=== PATIENT | male | born 1975 | race Caucasian/White ===

== ENCOUNTER 2016-12-04 09:12 | Observation (INO) | payer BC, OTHER ==
[~2016-12-04] VITALS: Ht 175.3 cm; Wt 73.0 kg
[2016-12-04 09:15] VITALS: BP 137/88; PULSE 57; RESP 16; TEMP 98.2; O2SAT 99
[2016-12-04] MEDS ORDERED: SODIUM CHLORIDE 0.9% FLUSH 10 ML FLUSH IVF PRN (09:30)
[2016-12-04] MEDS ORDERED: KETOROLAC TROMETHAMINE 30 MG/ML (IVP) VIAL IVP ONE (09:30)
[2016-12-04] MEDS ORDERED: ONDANSETRON HCL 4 MG/2 ML VIAL IVP ONE (09:30)
[2016-12-04] MEDS ORDERED: HYDROmorphone HCL PF 1 MG/ML VIAL IVS ONE (09:30)
--- NOTE | 2016-12-04 09:30 | PD ---
HPI . Right flank pain Chief Complaint: Flank/Kidney Pain Time Seen by Provider: 09:21 Travel History International Travel<30 days: No Contact w/Intl Traveler<30days: No Traveled to known affect area: No History of Present Illness HPI Patient presents with a chief complaint of right flank pain. Onset was 3-4 days ago. Symptoms have waxed and waned. Symptoms are getting progressively worse. He states that his pain can range anywhere from 5/109/10. He has not noted any exacerbating or relieving factors. He denies any previous similar history. He denies any urinary tract symptoms. He denies any nausea or vomiting. He denies anorexia or exacerbation of symptoms with eating. PFSH Past Medical History Cardiovascular Problems: Yes (HX HTN, DOES NOT TAKE THE MEDS X 2 YEARS) Hypertension: Yes (LONG AGO, DOES NOT TAKE THE MEDS) Past Surgical History Genitourinary Surgery: Yes (VASECTOMY) Social History Alcohol Use: Yes (RARE) Tobacco Use: No Substance Use: No Allergies-Medications (Allergen,Severity, Reaction): Coded Allergies: No Known Allergies (Unverified , 12/04/16) Reported Meds & Prescriptions Reported Meds & Active Scripts Active No Active Prescriptions or Reported Medications Review of Systems Except as stated in HPI: all other systems reviewed are Neg General / Constitutional: No: Fever, Chills Gastrointestinal: No: Nausea, Vomiting, Diarrhea, Loss of Appetite Genitourinary: Positive: Flank Pain, No: Urgency, Frequency, Dysuria, Hematuria Physical Exam Narrative GENERAL: Patient is awake and alert and in no acute distress. SKIN: Warm and dry. I do not see a rash in the area of pain. HEAD: Atraumatic. Normocephalic. EYES: Pupils equal and round. Extraocular movements are intact. ENT: No nasal bleeding or discharge. Mucous membranes pink and moist. NECK: Trachea midline. Neck is supple. CARDIOVASCULAR: Regular rate and rhythm. RESPIRATORY: No accessory muscle use. GASTROINTESTINAL: Abdomen soft, non-tender, nondistended. I am unable to elicit any right upper quadrant tenderness. He has very mild right CVA tenderness. MUSCULOSKELETAL: No obvious deformities. No edema. NEUROLOGICAL: Awake and alert. No obvious cranial nerve deficits. Motor grossly within normal limits. Normal speech. PSYCHIATRIC: Appropriate mood and affect; insight and judgment normal. Data Data Last Documented VS Vital Signs Date Time Temp Pulse Resp B/P Pulse Ox O2 Delivery O2 Flow Rate FiO2 12/04/16 13:34 98.3 63 16 141/91 100 Room Air Orders Urinalysis - C+S If Indicated (12/04/16 09:25) Ct Abd/Pel W/O Iv Contrast (12/04/16 09:25) Iv Access Insert/Monitor (12/04/16 09:25) Ketorolac Inj (Toradol Inj) (12/04/16 09:30) Ondansetron Inj (Zofran Inj) (12/04/16 09:30) Sodium Chloride 0.9% Flush (Ns Flush) (12/04/16 09:30) Hydromorphone Pf Inj (Dilaudid Pf Inj) (12/04/16 09:30) Complete Blood Count With Diff (12/04/16 10:15) Basic Metabolic Panel (Bmp) (12/04/16 10:15) Sodium Chlor 0.9% 1000 Ml Inj (Ns 1000 M (12/04/16 11:00) Labs Laboratory Tests Test 12/04/16 12/04/16 09:34 10:20 Urine Color YELLOW Urine Turbidity CLEAR Urine pH 6.5 Urine Specific [place] 1.021 Urine Protein NEG mg/dL Urine Glucose (UA) NEG mg/dL Urine Ketones NEG mg/dL Urine Occult Blood NEG Urine Nitrite NEG Urine Bilirubin NEG Urine Leukocyte Esterase NEG Urine WBC 0-2 /hpf Urine Bacteria RARE /hpf Microscopic Urinalysis Comment CULT NOT INDICATED White Blood Count 6.9 TH/MM3 Red Blood Count 5.36 MIL/MM3 Hemoglobin 15.4 GM/DL Hematocrit 47.1 % Mean Corpuscular Volume 87.9 FL Mean Corpuscular Hemoglobin 28.7 PG Mean Corpuscular Hemoglobin 32.7 % Concent Red Cell Distribution Width 13.0 % Platelet Count 301 TH/MM3 Mean Platelet Volume 8.9 FL Neutrophils (%) (Auto) 63.4 % Lymphocytes (%) (Auto) 27.5 % Monocytes (%) (Auto) 5.2 % Eosinophils (%) (Auto) 2.8 % Basophils (%) (Auto) 1.1 % Neutrophils # (Auto) 4.2 TH/MM3 Lymphocytes # (Auto) 1.9 TH/MM3 Monocytes # (Auto) 0.4 TH/MM3 Eosinophils # (Auto) 0.2 TH/MM3 Basophils # (Auto) 0.1 TH/MM3 CBC Comment DIFF FINAL Differential Comment Sodium Level 144 MEQ/L Potassium Level 4.1 MEQ/L Chloride Level 109 MEQ/L Carbon Dioxide Level 28.4 MEQ/L Anion Gap 7 MEQ/L Blood Urea Nitrogen 12 MG/DL Creatinine 0.96 MG/DL Estimat Glomerular Filtration 87 ML/MIN Rate Random Glucose 93 MG/DL Calcium Level 8.3 MG/DL MDM Medical Decision Making Medical Screen Exam Complete: Yes Emergency Medical Condition: Yes Differential Diagnosis Differential diagnosis of flank pain includes but is not limited to kidney stone , pyelonephritis, musculoskeletal pain, PE Narrative Course This patient presents with a 3 day history of right flank pain. Symptoms have waxed and waned and are getting progressively worse. He will be evaluated for possible kidney stone. Last Impressions Abdomen/Pelvis CT 12/04/1625 Signed Impressions: Service Date/Time: , December 04, 2016 09:33 - CONCLUSION: 1. Dense enlarged appendix without significant periappendiceal inflammatory change at this time. Findings may reflect very acute developing appendicitis versus resolving appendicitis. 2. Bilateral fat containing inguinal hernias. 1. Garrett Parkinson MD Given the results of the CT, labs were ordered. CBC & BMP Diagram 12/04/16 10:20 His UA is unremarkable I have subsequently discussed the case with Dr. Mchugh. He will come and see the patient in the emergency department. The patient is aware. The patient is also aware that it would be a while before Dr. Mchugh gets here. Dr. Mchugh has subsequently seen the patient and is planning to take the patient to the operating room for an appendectomy. Diagnosis Primary Impression: Flank pain Admitting Information Admitting Physician Requests: Observation Scripts No Active Prescriptions or Reported Meds Condition: Stable Eloisa Vargas MD Dec 04, 2016 09:30
[2016-12-04 10:01] LABS: BLOOD, URINE NEG (NEG); GLUCOSE,URINE NEG (NEG); KETONE, URINE NEG (NEG); NITRITE,URINE NEG (NEG); PH, URINE 6.5 (5.0-8.5)
--- NOTE | 2016-12-04 10:08 | RADRPT ---
EXAM DATE/TIME: 12/04/2016 09:33 [facility] COMPARISON: No previous studies available for comparison. INDICATIONS : Right flank pain. ORAL CONTRAST: No oral contrast ingested. RADIATION DOSE: 10.35 CTDIvol (mGy) MEDICAL HISTORY : Hypertension. SURGICAL HISTORY : Vasectomy. ENCOUNTER: Initial ACUITY: 4 - 6 days PAIN SCALE: 7/10 LOCATION: Right flank TECHNIQUE: Volumetric scanning of the abdomen and pelvis was performed. Using automated exposure control and ad justment of the mA and/or kV according to patient size, radiation dose was kept as low as reasonably achievable to obtain optimal diagnostic quality images. DICOM format image data is available electro nically for review and comparison. FINDINGS: LOWER LUNGS: The visualized lower lungs are clear. LIVER: Homogeneous density without lesion. There is no dilation of the biliary tree. No calcified gallston es. SPLEEN: Normal size without lesion. PANCREAS: Within normal limits. KIDNEYS: Normal in size and shape. There is no mass, stone, or hydronephrosis. ADRENAL GLANDS: Within normal limits. VASCULAR: There is no aortic aneurysm. BOWEL/MESENTERY: Appendix is visualized and appears dense and enlarged measuring up to 9 mm containing small foci of a ir. There is no significant periappendiceal inflammatory change although several small subcentimeter mesenteric nodes are noted. The stomach, small bowel, and colon demonstrate no acute abnormality. Th ere is no free intraperitoneal air or fluid. ABDOMINAL WALL: Within normal limits. RETROPERITONEUM: No retroperitoneal adenopathy. BLADDER: No wall thickening or mass. REPRODUCTIVE: Nonspecific mild prostatic enlargement with prostate calcifications. INGUINAL: Small fat containing bilateral inguinal hernias more prominently on the left. MUSCULOSKELETAL: Within normal limits for patient age. CONCLUSION: 1. Dense enlarged appendix without significant periappendiceal inflammatory change at this time. Find ings may reflect very acute developing appendicitis versus resolving appendicitis. 2. Bilateral fat containing inguinal hernias. 1. Garrett Parkinson MD on December 04, 2016 at 9:59 Board Certified Radiologist. This report was verified electronically.
[2016-12-04 10:11] LABS: BACTERIA, URINE RARE /hpf; COMMENT (UR) CULT NOT INDICATED; CULTURE IF INDICATED CULT NOT INDICATED; URINE COLOR YELLOW (YELLW/STRAW); WBC, URINE 0-2 /hpf (0-5)
[2016-12-04 10:33] LABS: AUTOMATED NEUTROPHIL # 4.2 TH/MM3 (1.8-7.7); BASOPHIL # 0.1 TH/MM3 (0-0.2); BASOPHIL % 1.1 % (0.0-2.0); EOSINOPHIL # 0.2 TH/MM3 (0-0.4); EOSINOPHIL % 2.8 % (0.0-4.0); HEMATOCRIT 47.1 % (39.0-51.0); HEMO FLAGS DIFF FINAL; LYMPH % 27.5 % (9.0-44.0); LYMPHOCYTE # 1.9 TH/MM3 (1.0-4.8); MEAN CELL VOLUME 87.9 FL (80.0-100.0); MEAN CORPUSCULAR HEMOGLOBIN 28.7 PG (27.0-34.0); MEAN CORPUSCULAR HGB CONC 32.7 % (32.0-36.0); MONO % 5.2 % (0.0-8.0); NEUT % 63.4 % (16.0-70.0); PLATELET COUNT 301 TH/MM3 (150-450); RED BLOOD COUNT 5.36 MIL/MM3 (4.50-5.90); WHITE BLOOD COUNT 6.9 TH/MM3 (4.0-11.0)
[2016-12-04 10:40] LABS: POTASSIUM 4.1 MEQ/L (3.5-5.1)
[2016-12-04 10:44] LABS: BICARBONATE 28.4 MEQ/L (21.0-32.0)
[2016-12-04] MEDS ORDERED: SODIUM CHLOR 0.9% 1000 ML INJ 1,000 ML IV ONE (11:00)
[2016-12-04 13:34] VITALS: BP 141/91; PULSE 63; RESP 16; TEMP 98.3; O2SAT 100
[2016-12-04] MEDS ORDERED: IBUP800T23 PO (15:30)
[2016-12-04] MEDS ORDERED: CYCL1TAB29 PO (15:30)
[2016-12-04] MEDS ORDERED: NORC5TAB PO (15:30)
[2016-12-04 15:38] VITALS: BP 135/82
--- NOTE | 2016-12-04 21:28 | MB ---
cc: ORION NARVAEZ MD DATE OF CONSULTATION: 12/04/2016. REASON FOR CONSULTATION / CHIEF COMPLAINT: Right lower quadrant abdominal pain and flank pain. HISTORY OF PRESENT ILLNESS: The patient is 41-year-old male who presents with complaints of acute onset of right lower quadrant flank pain. The patient states the pain has been going on for the past three or four days and has been waxing and waning. It was getting progressively worse. The pain is currently a 5/10; it was an 8/10, it was sharp and it radiated to the right side and back. He had this pain for some time now and states it is chronic and progressive; however, this is acute onset when it was at its worst. He denies any fevers or chills, nausea or vomiting. He is currently hungry. Nothing exacerbates symptoms other than movement. PAST MEDICAL HISTORY: Hypertension. PAST SURGICAL HISTORY: Mastectomy SOCIAL HISTORY: Occasional EtOH, denies smoking or IV drug abuse. ALLERGIES: The patient has no known drug allergies. MEDICATIONS: See the electronic medical record. FAMILY HISTORY: Denies hypertension or diabetes. REVIEW OF SYSTEMS: GENERAL: The patient denies fevers or chills. HEAD, EYES, EARS, NOSE, THROAT: Denies eye pain, ear pain. LUNGS: Denies cough or wheeze. CARDIAC: Denies chest pain or palpitation. ABDOMEN: Complains of abdominal pain. Denies nausea, vomiting. : Denies dysuria, hematuria. ENDOCRINE: Denies polyuria or polydipsia. INTEGUMENT: Denies a mass or lesion. PSYCHIATRIC: Denies change in mood or sensorium. PHYSICAL EXAMINATION: GENERAL: The patient is in no acute distress. VITAL SIGNS: Temperature 98.3, pulse 63, respirations 16, blood pressure 141/91, saturation 100% on room air. HEAD, EYES, EARS, NOSE, THROAT: PERRLA, pupils equal round reactive. LUNGS: Clear to auscultation bilaterally. HEART: S1-S2 regular rhythm. ABDOMEN: Soft, positive tenderness to palpation right lower quadrant, mild. No rebound. No guarding. Positive flank tenderness. EXTREMITIES: Warm, well-perfused. NEUROLOGIC: GCS of 15, 5/5 motor all extremities. SKIN: No obvious masses or lesions. LABORATORY AND DIAGNOSTIC DATA: WBCs 6.9, hemoglobin 15.4, hematocrit 47.1, platelets 301,000. Sodium 144, potassium 4.1, chloride 109, BUN is 12, creatinine 0.9, glucose 87, calcium 8.3. IMAGING STUDIES: Reviewed by myself: CT abdomen and pelvis shows enlarged appendix without periappendiceal inflammation without thickening without periappendiceal fluid, minimal trace amounts of radiopaque fluid in the appendix. ASSESSMENT: The patient is a 41-year-old male with acute onset of right lower quadrant abdominal pain. No fevers. Normal white count. Mild tenderness. PLAN: After full clinical, radiologic and laboratory workup the patient with the above-named issues including right lower quadrant abdominal pain. At this point, I have a very low suspicion for acute appendicitis as the patient does not demonstrate typical signs and symptoms of acute appendicitis other than right lower quadrant pain. He does have some minimal dilation of the appendix, however, this is really appears to be somewhat of a normal variant. Discussed with radiology, Dr. Law, who really agreed that there is no significance in inflammation around the appendix, however did discuss with the patient several options: He could consider diagnostic laparoscopy, laparoscopic appendectomy, he could consider on admit for observation and recheck the vitals and labs in the morning or possible discharge home with return to the emergency department for repeat abdominal exam if symptoms persist. The patient is currently electing to be discharged. He may need further workup including colonoscopy or possibly MRI of his spine to rule out any kind of neurologic or colonic pain. Again discussed with staff and the patient in detail. MD GERMAN Fuchs/GERARDO /5:12 PM /9:20 PM
== END 2016-12-04 15:48 | disposition home or self-care (01) ==
LOC: PHED 09:12 → PHEDA 13:42
PROVIDERS: ADMIT Surgery; ATTEND Surgery
DX: R10.31 Right lower quadrant pain (principal); I10 Essential (primary) hypertension; K40.20 Bilateral inguinal hernia, without obstruction or gangrene, not specified as recurrent
CPT/HCPCS: 74176; 80048; 81001; 85025; 96361; 96374; 96375; 96376; 99285; G0378; J1885; J2405; J7030

== ENCOUNTER 2017-02-18 20:03 | Emergency (ER) | payer OTHER ==
[~2017-02-18] VITALS: Ht 175.3 cm; Wt 76.7 kg
[~2017-02-18 20:03] MED LIST: CYCL1TAB29 PO; IBUP800T23 PO; NORC5TAB PO
[2017-02-18 20:08] VITALS: BP 160/113; PULSE 77; RESP 18; TEMP 97.7; O2SAT 98
[2017-02-18 21:46] LABS: BLOOD, URINE NEG (NEG); GLUCOSE,URINE NEG (NEG); KETONE, URINE NEG (NEG); NITRITE,URINE NEG (NEG); PH, URINE 6.5 (5.0-8.5)
[2017-02-18 22:08] LABS: COMMENT (UR) CULT NOT INDICATED; CULTURE IF INDICATED CULT NOT INDICATED; METHOD OF COLLECTION CLEAN CATCH; URINE COLOR YELLOW (YELLW/STRAW); WBC, URINE 0-2 /hpf (0-5)
[2017-02-18 22:32] VITALS: BP 145/103; PULSE 90; RESP 18; O2SAT 96
--- NOTE | 2017-02-18 22:57 | RADRPT ---
EXAM DATE/TIME: 02/18/2017 21:41 [facility] COMPARISON: US TESTICLE W/DOPPLER, November 13, 2015, 15:37. INDICATIONS : Testicular pain. MEDICAL HISTORY : Hypertension. SURGICAL HISTORY : Vasectomy. ENCOUNTER: Subsequent ACUITY: 2 weeks PAIN SCORE: 4/10 LOCATION: Bilateral scrotum. MEASUREMENTS: RIGHT TESTICLE: 3.9 x 2.9 x 1.9cm LEFT TESTICLE: 3.7 x 2.8 x 1.9cm FINDINGS: RIGHT TESTICLE: Homogeneous echotexture without intra or extratesticular mass. There are a few tiny echogenic foci l ikely related to microlithiasis. Blood flow is symmetric and within normal limits. No hydrocele or v aricocele. Epididymis is within normal limits. LEFT TESTICLE: Homogeneous echotexture without intra or extratesticular mass. There are a few tiny echogenic foci l ikely related to microlithiasis.Blood flow is symmetric and within normal limits. No hydrocele or va ricocele. Epididymis is within normal limits. SCROTUM: Within normal limits. CONCLUSION: The testicles appear grossly normal. Normal blood flow seen bilaterally. There is tiny echogenic foci likely related to minimal microlithiasis. Misael Castillo MD on February 18, 2017 at 22:54 Board Certified Radiologist. This report was verified electronically.
[2017-02-18] MEDS ORDERED: traMADol HCL 50 MG TAB PO ONE (23:00)
[2017-02-18] MEDS ORDERED: ULTR50TA5 PO (23:10)
[2017-02-18] MEDS ORDERED: LEVA500T20 PO (23:10)
--- NOTE | 2017-02-18 23:11 | PD ---
HPI Chief Complaint: Complaint Time Seen by Provider: 22:10 Travel History International Travel<30 days: No Contact w/Intl Traveler<30days: No Traveled to known affect area: No History of Present Illness HPI Patient is a 41-year-old male with a history of BPH presents emergency department for evaluation of dysuria, painful defecation, testicular pain intermittent for the past 2 weeks. Patient states he went to his primary care provider and placed on Keflex. He says despite finishing the course of this medication he still continues to have symptoms. He has not seen a urologist but did have a PSA check some months ago and states was normal. He denies any fever denies any rectal bleeding denies any constipation or diarrhea. States is happily and has no history of STDs nor discharge. PFSH Past Medical History Cardiovascular Problems: Yes Diminished Hearing: No Hypertension: Yes (BORDERLINE) Immunizations Current: No Tetanus Vaccination: > 5 Years Influenza Vaccination: No Past Surgical History Genitourinary Surgery: Yes (VASECTOMY) Social History Alcohol Use: Yes (RARE) Tobacco Use: No Substance Use: No Allergies-Medications (Allergen,Severity, Reaction): Coded Allergies: No Known Allergies (Unverified , 02/18/17) Reported Meds & Prescriptions Reported Meds & Active Scripts Active Ultram (Tramadol HCl) 50 Mg Tab 50 Mg PO Q6H PRN Levaquin (Levofloxacin) 500 Mg Tablet 500 Mg PO DAILY 14 Days Ibuprofen 800 Mg Tab 800 Mg PO Q8H PRN Review of Systems Except as stated in HPI: all other systems reviewed are Neg Physical Exam Narrative GENERAL: Well-nourished, well-developed patient. SKIN: Focused skin assessment warm/dry. HEAD: Normocephalic. EYES: No scleral icterus. No injection or drainage. NECK: Supple, trachea midline. No JVD or lymphadenopathy. CARDIOVASCULAR: Regular rate and rhythm without murmurs, gallops, or rubs. RESPIRATORY: Breath sounds equal bilaterally. No accessory muscle use. GASTROINTESTINAL: Abdomen soft, non-tender, nondistended. GENITOURINARY: Grossly normal circumcised male genitalia. Scrotum and contents normal, palpation of internal structures nose no pain. Cremaster reflex intact. MUSCULOSKELETAL: No cyanosis, or edema. BACK: Nontender without obvious deformity. No CVA tenderness. Data Data Last Documented VS Vital Signs Date Time Temp Pulse Resp B/P (MAP) Pulse Ox O2 Delivery O2 Flow Rate FiO2 02/18/17 23:21 02/18/17 22:32 90 18 96 Room Air 02/18/17 20:08 97.7 Orders Orders Us Testicles W Doppler (02/18/17 ) Urinalysis - C+S If Indicated (02/18/17 21:25) Tramadol (Ultram) (02/18/17 23:00) Labs Laboratory Tests Test 02/18/17 21:30 Urine Collection Type CLEAN CATCH Urine Color YELLOW Urine Turbidity CLEAR Urine pH 6.5 Urine Specific [place] 1.024 Urine Protein NEG mg/dL Urine Glucose (UA) NEG mg/dL Urine Ketones NEG mg/dL Urine Occult Blood NEG Urine Nitrite NEG Urine Bilirubin NEG Urine Leukocyte Esterase NEG Urine WBC 0-2 /hpf Urine Amorphous Sediment FEW Microscopic Urinalysis Comment CULT NOT INDICATED Urine Collection Time 2130 MDM Medical Decision Making Medical Screen Exam Complete: Yes Emergency Medical Condition: Yes Differential Diagnosis Torsion seems unlikely, epididymitis, orchitis, prostatitis, STD seems unlikely. Narrative Course Patient roomed in the emergency department, primary complaint is testicular pain but also on review of systems endorses some painful defecation. States he tested positive for urinary tract infection was placed on Keflex, consideration given strongly for nongonococcal prostatitis. Discussed with the patient rectal exam but his symptoms are highly suggestive prostatitis, rectal exam deferred at this time patient preference, recommended that he follow-up with urologist. Will be placed on Levaquin. Discussed symptomatic management returned ED criteria. Diagnosis Primary Impression: Prostatitis Referrals: Ruben Abdi DO Med/Other Pt SpecificInfo: Prescription(s) given Scripts Tramadol (Ultram) 50 Mg Tab 50 MG PO Q6H Y for PAIN, #10 TAB 0 Refills Prov: Jaime Martinez MD 02/18/17 Levofloxacin (Levaquin) 500 Mg Tablet 500 MG PO DAILY for Infection for 14 Days, #14 TAB 0 Refills Prov: Jaime Martinez MD 02/18/17 Disposition: 01 DISCHARGE HOME Condition: Stable Jaime Martinez MD Feb 18, 2017 23:10
== END 2017-02-18 23:27 | disposition home or self-care (01) ==
LOC: PHED 20:03
DX: N41.9 Inflammatory disease of prostate, unspecified (principal); N50.819 Testicular pain, unspecified
CPT/HCPCS: 76870; 81001; 93975; 99285